=== PATIENT | female | born 1950 | race Caucasian/White ===

== ENCOUNTER → 2017-05-16 | Outpatient (CLI) | payer OTHER, MEDICARE ==
[~2017-05-16] MED LIST: ANTIVERT12.5 MG PO; BENICAR20 MG PO; LOPRESSOR50 PO; MEDROLDOSEPACK PO; ZOCOR20 MG PO
== END ==
LOC: M.RAD 14:25
DX: M47.896 Other spondylosis, lumbar region (principal); G95.89 Other specified diseases of spinal cord

== ENCOUNTER → 2018-11-07 | Outpatient (CLI) | payer OTHER, MEDICARE | LOC: M.RAD 15:50 | DX: M47.26 Other spondylosis with radiculopathy, lumbar region (principal); M48.061 Spinal stenosis, lumbar region without neurogenic claudication ==

== ENCOUNTER 2019-07-10 13:00 | Emergency (ER) | payer OTHER, MEDICARE ==
[~2019-07-10] VITALS: Ht 165.1 cm; Wt 108.4 kg
[2019-07-10 13:35] LABS: ABSOLUTE BASOPHILS 0.1 thou/uL (0.0-0.2); ABSOLUTE EOSINOPHILS 0.2 thou/uL (0.0-0.7); ABSOLUTE LYMPHOCYTES 2.4 thou/uL (0.8-5.3); ABSOLUTE MONOCYTES 0.7 thou/uL (0.0-1.2); ABSOLUTE NEUTROPHILS 8.3 thou/uL (1.6-8.1); BASOPHILS 0.8 %; HEMATOCRIT 39.1 % (37.0-47.0); HEMOGLOBIN 13.8 gm/dL (12.0-15.0); LYMPHOCYTES 20.8 %; MCH 29.6 pg (26.0-34.0); MCHC 35.3 g/dL (28.0-37.0); MCV 83.8 fL (80.0-100.0); MONOCYTES 5.9 %; MPV 7.7 fl. (7.2-11.1); NUCLEATED RBCS 0 /100WBC; PLATELET COUNT* 318 thou/uL (150-400); POLYS 70.5 %; RBC 4.66 mil/uL (4.20-5.00); RDW-CV 13.9 % (10.5-14.5); WBC 11.7 thou/uL (4.0-11.0)
[2019-07-10 13:47] LABS: CALCIUM 9.2 mg/dL (8.5-10.1); POTASSIUM 3.5 mmol/L (3.5-5.1)
[2019-07-10 13:52] LABS: ALBUMIN 3.8 g/dL (3.4-5.0); TOTAL BILIRUBIN 0.3 mg/dL (<0.1-1.0); TOTAL PROTEIN 7.5 g/dL (6.4-8.2)
[2019-07-10 14:03] LABS: URINE BILIRUBIN NEGATIVE (Negative); URINE BLOOD TRACE (Negative); URINE CLARITY CLEAR; URINE COLOR YELLOW; URINE GLUCOSE-RANDOM NEGATIVE (Negative); URINE KETONES NEGATIVE (Negative); URINE LEUKOCYTES-REFLEX NEGATIVE (Negative); URINE NITRITE-REFLEX NEGATIVE (Negative); URINE PROTEIN NEGATIVE (Negative); URINE UROBILINOGEN 0.2 E.U./dl (0.2-1.0)
[2019-07-10] MEDS ORDERED: PROAIR HFA8.5 GM INH (16:30)
[2019-07-10] MEDS ORDERED: NORCO 5-325 TA1 EAC1 PO (16:30)
[2019-07-10 16:52] VITALS: BP 163/75
--- NOTE | 2019-07-11 16:44 | EKG ---
[place] [address] ELECTROCARDIOGRAM REPORT Name: YUE WICK Room: [facility]#: [id number] Admission: 07/10/19 Attend Phys: Discharge: 07/10/19 Date of : 54 Date of Service: 07/10/19 1436 Report #: [id number] THIS REPORT FOR: //name// [facility] ED Test Date: 2019-07-10 Test Time: 14:36:27 Pat Name: YUE WICK Department: Room: Gender: F [employer]ist: [place] : 1950 Requested By: Juany Porras Order Number: [id number] MD: Mal Tadeo Measurements Intervals [place] Rate: 74 P: 43 HI: 158 QRS: 45 QRSD: 90 T: -21 QT: 430 QTc: 477 Interpretive Statements Sinus rhythm Nonspecific T abnormalities, inferior leads Compared to ECG 01/26/2015 09:40:57 T-wave abnormality now present Electronically Signed On 07-11-2019 16:42:51 CDT by Mal Tadeo [email or web address] <ELECTRONICALLY SIGNED> By: Mal Tadeo MD, FAC 07/11/19 1642 1436 1436 Mal Tadeo MD, [facility] /EPI
== END 2019-07-10 16:53 | disposition home or self-care (01) ==
LOC: M.ERS 13:00
PROVIDERS: Physician Assistant
DX: M54.5 Low back pain (principal); R91.8 Other nonspecific abnormal finding of lung field; R09.1 Pleurisy; R10.12 Left upper quadrant pain; R10.32 Left lower quadrant pain; R10.11 Right upper quadrant pain; I10 Essential (primary) hypertension; E78.00 Pure hypercholesterolemia, unspecified; F17.210 Nicotine dependence, cigarettes, uncomplicated; Z88.0 Allergy status to penicillin

== ENCOUNTER → 2019-07-24 | Outpatient (CLI) | payer OTHER, MEDICARE ==
[~2019-07-24] MED LIST changes: +NORCO 5-325 TA1 EAC1 PO; +PROAIR HFA8.5 GM INH
== END ==
LOC: M.ULTRA 12:59
DX: E04.1 Nontoxic single thyroid nodule (principal)